=== PATIENT | female | born 1970 | race Two or more races ===

== ENCOUNTER 2020-11-10 20:07 | Emergency (ER) | payer SELFPAY ==
[~2020-11-10] VITALS: Ht 152.4 cm; Wt 72.7 kg
--- NOTE | 2020-11-10 23:40 | PHYS DOC ---
Past Medical History Past Surgical History: Other Additional Past Surgical Histo: unknown ambilical sx w child bearing General Adult EDM: Chief Complaint: ABDOMINAL PAIN HPI: HPI: Patient is a 50 year old female without pertinent past medical history who presents with left lower quadrant pain that radiates to her left flank. Started at 10 AM this morning. Has been unrelenting since. Associated with hematuria. Denies dysuria, urgency, frequency. No fevers or chills. Denies history of kidney stones in the past. Denies history of similar pain. No vaginal bleeding or discharge. LMP was 3 years ago. States that she had 1 surgery around the time of childbirth in [facility], unsure what it may have been. Denies any medications or other medical problems. Review of Systems: Review of Systems: Constitutional: Denies fever or chills. [] Eyes: Denies change in visual acuity. [] HENT: Denies nasal congestion or sore throat. [] Respiratory: Denies cough or shortness of breath. [] Cardiovascular: Denies chest pain or edema. [] GI: Reports abdominal pain. No nausea, vomiting, bloody stools or diarrhea. [] : + Hematuria and flank pain.. [] Musculoskeletal: Denies back pain or joint pain. [] Integument: Denies rash. [] Neurologic: Denies headache, focal weakness or sensory changes. [] Endocrine: Denies polyuria or polydipsia. [] Lymphatic: Denies swollen glands. [] Psychiatric: Denies depression or anxiety. [] Heart Score: C/O Chest Pain: No Risk Factors: Risk Factors: DM, Current or recent (<one month) smoker, HTN, HLP, family history of CAD, obesity. Risk Scores: Score 0 - 3: 2.5% MACE over next 6 weeks - Discharge Home Score 4 - 6: 20.3% MACE over next 6 weeks - Admit for Clinical Observation Score 7 - 10: 72.7% MACE over next 6 weeks - Early Invasive Strategies Physical Exam: PE: Constitutional: Appears uncomfortable, moaning and clutching left lower quadrant.. [] HENT: Normocephalic, atraumatic, Neck: Normal range of motion, supple. [] Cardiovascular:Heart rate regular rhythm, no murmur [] Lungs & Thorax: Bilateral breath sounds clear to auscultation [] Abdomen: soft, not significantly tender. [] Skin: Warm, dry, no erythema, no rash. [] Back: No tenderness, no CVA tenderness. [] Extremities: No tenderness, no cyanosis, no clubbing, ROM intact, no edema. [] Neurologic: Alert and oriented X 3, normal motor function, normal sensory function, no focal deficits noted. [] Psychologic: Affect normal, judgement normal, mood normal. [] Current Patient Data: Vital Signs: Vital Signs Date Time Temp Pulse Resp B/P (MAP) Pulse Ox O2 Delivery O2 Flow Rate FiO2 11/10/20 21:21 98.5 90 24 134/83 (100) 97 Room Air 98.5 EKG: EKG: [] Radiology/Procedures: Radiology/Procedures: [] Impression: [facility] [address] [place], [place] [id number] IMAGING REPORT Signed PATIENT: VINNIE RING MACCOUNT: [id number] : 1970 LOCATION: ER AGE: 50 SEX: F EXAM STATUS: REG ER ORD. PHYSICIAN: JOAQUIN MARTELL MD REASON: L GROIN PAIN RADIATING TO FLANK, HEMATURIA PROCEDURE: CT ABDOMEN PELVIS WO CONTRAST PQRS Compliance Statement: One or more of the following individualized dose reduction techniques were utilized for this examination: 1. Automated exposure control 2. Adjustment of the mA and/or kV according to patient size 3. Use of iterative reconstruction technique CT ABDOMEN+PELVIS WO Clinical Indication: Reason: L GROIN PAIN RADIATING TO FLANK, HEMATURIA / Spl. Instructions: / History: Comparison: None. Technique: Helical CT imaging of the abdomen and pelvis is performed without IV or oral contrast. Findings: Evaluation of solid organs and bowel is limited without oral and IV contrast, decreasing sensitivity for detection of pathology. Respiratory motion artifact. Moderate groundglass and reticular opacities in the bilateral lung bases may be atelectasis or pneumonia. Cardiac size normal. Liver, gallbladder, spleen, pancreas, adrenal glands, and abdominal aorta are normal. There is a punctate nonobstructing right renal calculus, image 86. There is left perinephric stranding. There is moderate left hydroureteronephrosis. A left ureteral calculus is not identified. There is a 3 mm calculus dependently in the right urinary bladder. The stomach is unremarkable. There is no small bowel obstruction. The appendix is normal. No colon wall thickening is seen. No abdominal adenopathy. Atrophic uterus. No urinary bladder wall thickening. There is no pelvic free fluid. No acute bone abnormality. IMPRESSION: 1. There is moderate left hydroureteronephrosis and moderate perinephric stranding. A left ureteral calculus is not identified. Findings could be due to recently passed calculus, a 3 mm calculus is seen in the right urinary bladder. A nonradiopaque ureteral calculus or urinary tract infection are other considerations. 2. Moderate groundglass and reticular opacities in the bilateral lung bases may be atelectasis or pneumonia. 3. Punctate nonobstructing right renal calculus. Electronically signed by: Andrea Anaya MD (11/11/2020 12:41 AM) [facility] DICTATED and SIGNED BY: ANDREA ANAYA MD DATE: 11/11/20 [id number] 0 Course & Med Decision Making: Course & Med Decision Making Pertinent Labs and Imaging studies reviewed. (See chart for details) Patient is a 50-year-old female without pertinent past medical history who presents with left lower quadrant pain radiating to her flank and hematuria since 10 AM. On arrival is afebrile and hemodynamically stable. History concerning for a kidney stone. No history of same. No vaginal symptoms to suggest a gynecologic process, ovarian torsion etc. No N/V, diarrhea to suggest diverticulitis. We will check CT abdomen/pelvis WO contrast, UA, CBC, CMP. CT suggestive of passed ureterolithiasis. Now with stone in the bladder. It did have hydroureteronephrosis on the left and some perinephric stranding. Fortunately, her creatinine was normal and her urine did not appear infected. Her pain was improved on reevaluation, but still present. We will give a short course of oxycodone for pain control as well as plan for Tylenol, ibuprofen. She does not have a PCP, so she was instructed to return to the emergency department if her pain is not improved in 2 days, she has worsening pain, or develops fever/chills/dysuria. She was provided with [facility] info to establish care. [id number] Disclaimer: Kole Disclaimer: This electronic medical record was generated, in whole or in part, using a voice recognition dictation system. Departure Departure Impression: Primary Impression: Hydronephrosis, left Disposition: 01 HOME / SELF CARE / HOMELESS Condition: STABLE Referrals: NO PCP (PCP) Additional Instructions: I believe that you had a kidney stone that has passed. Your pain should improve in the next 2 days. If it does not please return to the emergency department. If you develop fever/chills, or severe pain when you pee please also return to the emergency department. Since you do not have a PCP, please call the number for the [facility] at [phone]. For pain tylenol and ibuprofen are best used on a schedule. Please aslternate between the two. -Tylenol 1000 mg every 6 hours (do not exceed 4000 mg in one day) -Ibuprofen 400 mg every 6 hours. Take with food. Do not take for more than 1 week. For pain not controlled by the above you can take: -Oxycodone 5 mg every 4 hours as needed. This is a narcotic medication and can make you tired and impaired. Do not drive or operate machinery while taking oxycodone. It can also make you consitpated so please consider taking docusate and miralax (as directed by over the counter directions) to prevent constipation. Please try to take as little oxycodone as possible and wean yourself off as soon as you are able because it is an addictive medication. Scripts Oxycodone Hcl (OXYCODONE HCL) 5 Mg Capsule 5 MG PO PRN Q4-6HRS PRN for PAIN for 3 Days, #12 TAB 0 Refills Prov: JOAQUIN MARTELL MD 11/11/20 JOAQUIN MARTELL MD Nov 10, 2020 23:40
[2020-11-10] MEDS ORDERED: MORPHINE SULFATE 4 MG/ML INJ. IVP ONE (23:45)
[2020-11-10] MEDS ORDERED: ONDANSETRON PF 4 MG/2 ML VIAL. IVP ONE (23:45)
[2020-11-10] MEDS ORDERED: KETOROLAC 30 MG/ML VIAL. ONE (23:47)
[2020-11-10 23:56] LABS: CLARITY,URINE CLEAR; COLOR,URINE RED
[2020-11-10 23:59] LABS: BASO # 0.1 x10^3/uL (0.0-0.2); BASO % 1 % (0-3); EOS % 0 % (0-3); HEMATOCRIT 37.7 % (36.0-47.0); HEMOGLOBIN 12.9 g/dL (12.0-15.5); LYMPH # 0.9 x10^3/uL (1.0-4.8); LYMPH % 7 % (24-48); MEAN CORPUSCULAR HEMOGLOBIN 30 pg (25-35); MEAN CORPUSCULAR HGB CONC 34 g/dL (31-37); MEAN CORPUSCULAR VOLUME 88 fL (79-100); MONO # 0.3 x10^3/uL (0.0-1.1); MONO % 2 % (0-9); NEUT # 11.5 x10^3/uL (1.8-7.7); NEUT % 90 % (31-73); PLATELET COUNT 332 x10^3/uL (140-400); RED BLOOD COUNT 4.29 x10^6/uL (3.50-5.40); RED CELL DISTRIBUTION WIDTH 12.6 % (11.5-14.5); WHITE BLOOD COUNT 12.7 x10^3/uL (4.0-11.0)
[2020-11-11 00:04] LABS: CREATININE 0.8 mg/dL (0.6-1.0); GFR 75.9; POTASSIUM 3.9 mmol/L (3.5-5.1)
[2020-11-11 00:09] LABS: ALBUMIN 3.7 g/dL (3.4-5.0); ALBUMIN/GLOBULIN RATIO 0.9 (1.0-1.7); TOTAL BILIRUBIN 0.2 mg/dL (0.2-1.0); TOTAL PROTEIN 7.9 g/dL (6.4-8.2)
[2020-11-11 00:11] LABS: BACTERIA,URINE FEW /HPF (0-FEW); HYALINE CASTS, URINE FEW /HPF; RBC,URINE TNTC /HPF (0-2)
[2020-11-11 00:12] LABS: U PREG PATIENT NEGATIVE (NEG)
--- NOTE | 2020-11-11 00:43 | RAD ---
PQRS Compliance Statement: One or more of the following individualized dose reduction techniques were utilized for this examinat ion: 1. Automated exposure control 2. Adjustment of the mA and/or kV according to patient size 3. Use of iterative reconstruction technique CT ABDOMEN+PELVIS WO Clinical Indication: Reason: L GROIN PAIN RADIATING TO FLANK, HEMATURIA / Spl. Instructions: / Histo ry: Comparison: None. Technique: Helical CT imaging of the abdomen and pelvis is performed without IV or oral contrast. Findings: Evaluation of solid organs and bowel is limited without oral and IV contrast, decreasing sensitivity for detection of pathology. Respiratory motion artifact. Moderate groundglass and reticular opacities in the bilateral lung bases may be atelectasis or pneumonia. Cardiac size normal. Liver, gallbladder, spleen, pancreas, adrenal glands, and abdominal aorta are normal. There is a punctate nonobstructing right renal calculus, image 86. There is left perinephric strandin g. There is moderate left hydroureteronephrosis. A left ureteral calculus is not identified. There is a 3 mm calculus dependently in the right urinary bladder. The stomach is unremarkable. There is no small bowel obstruction. The appendix is normal. No colon wa ll thickening is seen. No abdominal adenopathy. Atrophic uterus. No urinary bladder wall thickening. There is no pelvic free fluid. No acute bone abnormality. IMPRESSION: 1. There is moderate left hydroureteronephrosis and moderate perinephric stranding. A left ureteral calculus is not identified. Findings could be due to recently passed calculus, a 3 mm calculus is see n in the right urinary bladder. A nonradiopaque ureteral calculus or urinary tract infection are othe r considerations. 2. Moderate groundglass and reticular opacities in the bilateral lung bases may be atelectasis or pn eumonia. 3. Punctate nonobstructing right renal calculus. Electronically signed by: Andrea Zaragoza MD (11/11/2020 12:41 AM) [facility]
[2020-11-11] MEDS ORDERED: KETOROLAC 15 MG/ML VIAL. IVP ONE (00:45)
[2020-11-11 00:49] LABS: % LYMPHS 8 % (24-48); % MONOS 2 % (0-10); % SEGS 90 % (35-66); PLT ESTIMATE ADEQUATE (ADEQUATE)
[2020-11-11] MEDS ORDERED: OXYC5CAP PO (01:11)
[2020-11-11 01:27] VITALS: BP 130/75
[2020-11-11] MEDS ORDERED: IOHEXOL 300 MG/ML 100ML VIAL. ONE (06:11)
== END 2020-11-11 01:46 | disposition home or self-care (01) ==
LOC: ER 20:07
DX: N13.2 Hydronephrosis with renal and ureteral calculous obstruction (principal)
CPT/HCPCS: 36415; 74176; 80053; 81001; 81025; 85007; 85025; 87086; 96374; 96375; 99284; J1885; J2270; J2405